=== PATIENT | female | born 1995 ===

== ENCOUNTER 2019-11-12 11:58 | Emergency (ER) | payer BC ==
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
--- NOTE | 2019-11-12 14:23 | CR ---
EXAMINATION: Ribs 2V w Chest Rt SEX: Female AGE: 24 years CLINICAL HISTORY: 24-year-old female lower right "rib" pain. Interpretation: PA chest and 2 oblique right rib detail films UNREMARKABLE (BB marker) i.e. negative. 1. No congenital abnormality, pathologic skeletal lesion, right rib fracture, underlying lung contusion, atelectasis, pleural effusion or pneumothorax on the right. Dorsal spine unremarkable where visualized. 2. Normal cardiac silhouette and left-sided aortic arch. No pulmonary vascular congestion, cephalization of flow, alveolar edema or pleural effusion. 3. No lung mass or hilar lymphadenopathy. No foreign bodies. Tracheobronchial airway unremarkable. 4. No focal lobar consolidation IE no infiltrate, atelectasis or lobar collapse.
[2019-11-12] MEDS ORDERED: Ketorolac 30 MG/ML SDV IM ONE (14:25)
== END 2019-11-12 14:50 | disposition home or self-care (01) ==
LOC: DL.ED 11:58
DX: S20.211A Contusion of right front wall of thorax, initial encounter (principal); Z88.1 Allergy status to other antibiotic agents; Z79.899 Other long term (current) drug therapy; W01.198A Fall on same level from slipping, tripping and stumbling with subsequent striking against other object, initial encounter
CPT/HCPCS: 71101; 96372; 99283; J1885

== ENCOUNTER 2021-11-26 10:35 | Emergency (ER) | payer SELFPAY ==
[2021-11-26] MEDS ORDERED: Ketorolac 30 MG/ML SDV IM ONE (11:29)
== END 2021-11-26 11:44 | disposition home or self-care (01) ==
LOC: DL.ED 10:35
DX: S20.212A Contusion of left front wall of thorax, initial encounter (principal); Z88.8 Allergy status to other drugs, medicaments and biological substances; Z79.899 Other long term (current) drug therapy; W18.30XA Fall on same level, unspecified, initial encounter
CPT/HCPCS: 71101; 96372; 99283; J1885; 99282